=== PATIENT | female | born 1945 | race Caucasian/White ===

== ENCOUNTER → 2024-06-28 | Outpatient (REF) | payer MEDICAID, SELFPAY ==
[2024-06-28 08:41] LABS: Hematocrit 23.4 % (37-47); Hemoglobin 7.5 g/dL (12.0-15.0); Mean Corp Hgb Conc 32.1 g/dL (32-36); Mean Corpuscular Hgb 32.9 pg (27.0-32.0); Mean Corpuscular Volume 102.6 fL (81-99); Platelet Count 320 K/mm3 (150-450); RBC Distribution Width CV 17.3 % (11.6-14.6); RBC Distribution Width SD 61.2 fl (35.1-43.9); Red Blood Count 2.28 M/mm3 (4.2-5.4); White Blood Count 9.2 K/mm3 (4.4-11.0)
[2024-06-28 08:57] LABS: ALB/GLOB Ratio 0.9 RATIO (0.9-2.4); AST(SGOT) 28 U/L (15-37); Alanine Aminotransfer ALT/SGPT 39 U/L (13-56); Alkaline Phosphatase 101 U/L (45-117); Anion Gap 8 (5-15); BUN 70 mg/dL (7-18); BUN/Creat Ratio 30.8 RATIO (10-20); Calcium,Total 11.2 mg/dL (8.5-10.1); Chloride 89 mmol/L (98-107); Creatinine, Serum 2.27 mg/dL (0.55-1.02); EST Glomerular Filtration Rate 22 mL/min (>60); Est Glom Filt Rate - Afr Amer 27 mL/min (>60); Globulin 3.3 g/dL (2.2-4.2); Glucose 109 mg/dL (74-106); Potassium 3.6 mmol/L (3.5-5.1); Protein, Total 6.3 g/dL (6.4-8.2); Sodium Level 129 mmol/L (136-145)
== END | disposition home or self-care (01) ==
LOC: OLS.SANC 06:00
PROVIDERS: PCP Dentist
DX: J44.9 Chronic obstructive pulmonary disease, unspecified (principal); N18.6 End stage renal disease
CPT/HCPCS: 36415; 80053; 85027

== ENCOUNTER → 2024-07-01 | Outpatient (REF) | payer MEDICAID, SELFPAY ==
[2024-07-01 09:26] LABS: BNP,B-Type NATRIURETIC PEPTIDE 1455.6 pg/mL (0-100)
== END | disposition home or self-care (01) ==
LOC: OLS.SANC 04:00
PROVIDERS: PCP Dentist
DX: Z79.899 Other long term (current) drug therapy (principal)
CPT/HCPCS: 36415; 83880

== ENCOUNTER → 2024-07-15 | Outpatient (REF) | payer MEDICAID, SELFPAY ==
[2024-07-15 09:55] LABS: Anion Gap 9 (5-15); BUN 59 mg/dL (7-18); BUN/Creat Ratio 34.9 RATIO (10-20); Calcium,Total 9.7 mg/dL (8.5-10.1); Chloride 89 mmol/L (98-107); Creatinine, Serum 1.69 mg/dL (0.55-1.02); EST Glomerular Filtration Rate 31 mL/min (>60); Est Glom Filt Rate - Afr Amer 38 mL/min (>60); Glucose 88 mg/dL (74-106); Potassium 3.4 mmol/L (3.5-5.1); Sodium Level 128 mmol/L (136-145)
== END | disposition home or self-care (01) ==
LOC: OLS.SANC 05:00
PROVIDERS: PCP Dentist
DX: I50.42 Chronic combined systolic (congestive) and diastolic (congestive) heart failure (principal); J44.9 Chronic obstructive pulmonary disease, unspecified; N17.9 Acute kidney failure, unspecified; I34.9 Nonrheumatic mitral valve disorder, unspecified; N18.6 End stage renal disease; N39.0 Urinary tract infection, site not specified
CPT/HCPCS: 36415; 80048; 81001; 87077; 87086; 87088; 87186

== ENCOUNTER → 2024-07-15 | Outpatient (REF) | payer MEDICAID, SELFPAY ==
[2024-07-16 08:04] LABS: Bacteria 0 SEEN /hpf (None Seen); Mucous, Urine 0 SEEN /hpf (<or=2+)
[2024-07-16 08:26] LABS: Color, Urine Yellow (Yellow); Glucose, Dipstick Normal (Normal); Ketone-Dipstick Negative (Negative); Leukocyte Esterase-Dipstick 500 /ul (Negative); Nitrite-Dipstick Negative (Negative); Occult Blood-Urine 250 /ul (Negative); Protein-Dipstick 100 mg/dl (Negative); Urine Clarity Cloudy (Clear); Urine Urobilinogen Normal (Normal)
[2024-07-16 08:27] LABS: Urine Bilirubin Dipstick 3 mg/dL (Negative)
[2024-07-16 10:58] LABS: Calcium Oxalate Crystals Ur 3+ /hpf (<or=2+); Red Blood Cells-Urine 50-100 SEEN /hpf (0-5); Squamous Epithelial Cells - UA 0-5 SEEN /hpf (5-10); White Blood Cells 50-100 SEEN /hpf (0-5)
== END | disposition home or self-care (01) ==
LOC: OLS.SANC 23:00
PROVIDERS: PCP Dentist
DX: N39.0 Urinary tract infection, site not specified (principal)
CPT/HCPCS: 81001; 87077; 87086; 87088; 87186

== ENCOUNTER → 2024-07-21 | Outpatient (REF) | payer MEDICARE, SELFPAY ==
[2024-07-21 06:52] LABS: Hemoglobin 7.5 g/dL (12.0-15.0); Mean Corp Hgb Conc 32.6 g/dL (32-36); Mean Corpuscular Hgb 33.3 pg (27.0-32.0); Mean Corpuscular Volume 102.2 fL (81-99); Mean Platelet Vol. 10.4 fl (6.2-12.0); Platelet Count 259 K/mm3 (150-450); RBC Distribution Width CV 16.3 % (11.6-14.6); RBC Distribution Width SD 60.1 fl (35.1-43.9); Red Blood Count 2.25 M/mm3 (4.2-5.4); White Blood Count 9.6 K/mm3 (4.4-11.0)
[2024-07-21 07:20] LABS: Anion Gap 11 (5-15); BUN 77 mg/dL (7-18); BUN/Creat Ratio 34.7 RATIO (10-20); Calcium,Total 10.1 mg/dL (8.5-10.1); Chloride 86 mmol/L (98-107); Creatinine, Serum 2.22 mg/dL (0.55-1.02); EST Glomerular Filtration Rate 23 mL/min (>60); Est Glom Filt Rate - Afr Amer 28 mL/min (>60); Glucose 132 mg/dL (74-106); Potassium 3.4 mmol/L (3.5-5.1); Sodium Level 127 mmol/L (136-145)
== END ==
LOC: OLS.SANC 05:00
PROVIDERS: PCP Dentist; Visit Provider Internal Medicine
DX: R39.9 Unspecified symptoms and signs involving the genitourinary system (principal); I50.9 Heart failure, unspecified; N18.6 End stage renal disease; J96.20 Acute and chronic respiratory failure, unspecified whether with hypoxia or hypercapnia
CPT/HCPCS: 36415; 80048; 85027; 87070; 87077; 87186; 87205

== ENCOUNTER → 2024-08-02 05:00 | Outpatient (REF) | payer MEDICARE, SELFPAY ==
[2024-08-02 08:28] LABS: Hematocrit 24.2 % (37-47); Hemoglobin 7.6 g/dL (12.0-15.0); Mean Corp Hgb Conc 31.4 g/dL (32-36); Mean Corpuscular Volume 105.2 fL (81-99); Mean Platelet Vol. 10.3 fl (6.2-12.0); Platelet Count 344 K/mm3 (150-450); RBC Distribution Width CV 16.2 % (11.6-14.6); White Blood Count 9.9 K/mm3 (4.4-11.0)
[2024-08-02 09:20] LABS: Anion Gap 9 (5-15); BUN 72 mg/dL (7-18); BUN/Creat Ratio 21.7 RATIO (10-20); Calcium,Total 10.8 mg/dL (8.5-10.1); Chloride 94 mmol/L (98-107); Creatinine, Serum 3.32 mg/dL (0.55-1.02); EST Glomerular Filtration Rate 14 mL/min (>60); Est Glom Filt Rate - Afr Amer 17 mL/min (>60); Glucose 129 mg/dL (74-106); Potassium 4.2 mmol/L (3.5-5.1); Sodium Level 131 mmol/L (136-145)
== END ==
LOC: OLS.SANC 05:00
PROVIDERS: PCP Dentist
DX: I50.9 Heart failure, unspecified (principal); J44.9 Chronic obstructive pulmonary disease, unspecified; M86.9 Osteomyelitis, unspecified
CPT/HCPCS: 36415; 80048; 85027

== ENCOUNTER → 2024-10-04 | Outpatient (REF) | payer MEDICAID, SELFPAY ==
[2024-10-04 08:43] LABS: Hematocrit 27.7 % (37-47); Hemoglobin 8.9 g/dL (12.0-15.0); Mean Corp Hgb Conc 32.1 g/dL (32-36); Mean Corpuscular Hgb 31.4 pg (27.0-32.0); Mean Corpuscular Volume 97.9 fL (81-99); Mean Platelet Vol. 10.5 fl (6.2-12.0); POSITIVE MORPHOLOGY YES; Platelet Count 225 K/mm3 (150-450); RBC Distribution Width CV 18.8 % (11.6-14.6); RBC Distribution Width SD 67.1 fl (35.1-43.9); Red Blood Count 2.83 M/mm3 (4.2-5.4); White Blood Count 7.7 K/mm3 (4.4-11.0)
[2024-10-04 08:44] LABS: Scan Indicated on CBC? Y/N YES- FLAGS NOTED
[2024-10-04 08:56] LABS: Anion Gap 15 (5-15); BUN 78 mg/dL (4-19); BUN/Creat Ratio 29.6 RATIO (10-20); Calcium,Total 10.4 mg/dL (7.6-11.0); Carbon Dioxide 27.3 mmol/L (21.0-32.0); Chloride 87 mmol/L (98-108); Creatinine, Serum 2.62 mg/dL (0.70-1.20); EST Glomerular Filtration Rate 18 (>60); Glucose 110 mg/dL (70-99); Potassium 3.8 mmol/L (3.3-5.1); Sodium Level 129 mmol/L (133-145)
== END | disposition home or self-care (01) ==
LOC: OLS.SANC 05:00
PROVIDERS: PCP Dentist; Visit Provider Internal Medicine
DX: J44.9 Chronic obstructive pulmonary disease, unspecified (principal); I50.9 Heart failure, unspecified; N17.9 Acute kidney failure, unspecified; N18.6 End stage renal disease
CPT/HCPCS: 36415; 80048; 85027

== ENCOUNTER → 2024-10-13 | Outpatient (REF) | payer MEDICARE, MEDICAID, SELFPAY | LOC: OLS.SANC 11:00 | PROVIDERS: PCP Dentist | DX: I50.9 Heart failure, unspecified (principal); J44.9 Chronic obstructive pulmonary disease, unspecified; Z99.11 Dependence on respirator [ventilator] status | CPT/HCPCS: 87070; 87077; 87186; 87205 ==